=== PATIENT | male | born 1995 | race Caucasian/White ===

== ENCOUNTER 2019-03-18 05:55 | Emergency (ER) | payer MEDICAID ==
[~2019-03-18] VITALS: Ht 177.8 cm; Wt 72.6 kg
[~2019-03-18 05:55] MED LIST: ALBUTEROL; TYLENOL
[2019-03-18 05:58] VITALS: BP 131/88
--- NOTE | 2019-03-18 05:59 | NUR ---
PT AMBULATED TO BED 9
[2019-03-18] MEDS ORDERED: KETOROLAC 60 MG/2 ML VIAL IM ONE (06:15)
--- NOTE | 2019-03-18 06:15 | NUR ---
23 Y/O MALE PRESENTS TO ED, C/O OF LEFT EAR PAIN 01/03. PT STATES WAKING UP AROUND 0100 THIS MORNING WITH PRESSURED PAIN ON EAR. STATES HAS MUFFLED HEARING ON LEFT EAR AND FEELS "FLUID COMING OUT." NO FLUIDS NOTED DURING ASSESSMENT. PT TOOK MOTRIN TO HELP ALLEVIATE PAIN BUT WITH LITTLE RELIEF. PT HAS STEADY GAIT. PT DENIES ANY DIZZINESS OR HEADACHE. PT STABLE. ERMD AWARE. WILL CONTINUE TO MONITOR.
[2019-03-18 06:32] VITALS: BP 131/88
--- NOTE | 2019-03-18 06:32 | NUR ---
PT DISCHARGED WITH PAPERWORK. RX CORTISPORIN, MOTRIN, NORCO. EDUCATED PT REGARDING MEDICATIONS AND S/E. EDUCATED PT REGARDING D/C DIAGNOSIS AND INSTRUCTIONS. PT VERBALIZED UNDERSTANDING OF TEACHING. TOLD PT TO FOLLOW UP WITH PCP AND WHEN TO RETURN TO ED. PT VSS. PT STATES MODERATE RELIEF FROM PAIN. ALL QUESTIONS ANSWERED.
== END 2019-03-18 06:32 | disposition home or self-care (01) ==
LOC: MED 05:55
DX: H72.92 Unspecified perforation of tympanic membrane, left ear (principal); H60.92 Unspecified otitis externa, left ear; Z79.899 Other long term (current) drug therapy
CPT/HCPCS: 96372; 99283; J1885